=== PATIENT | female | born 1975 | race Caucasian/White ===

== ENCOUNTER 2018-03-07 18:08 | Emergency (ER) | payer OTHER ==
[2018-03-07] MEDS ORDERED: Oxymetazoline HCl 0.05% ( 15 ML ) ONE (19:25)
[2018-03-07] MEDS ORDERED: Ketorolac Tromethamine 30 MG/ML VIAL ONE (19:25)
[2018-03-07] MEDS ORDERED: Prochlorperazine 10 MG/2 ML VIAL ONE (19:25)
[2018-03-07] MEDS ORDERED: diphenhydrAMINE 50 MG/ML VIAL ONE (19:25)
[2018-03-07] MEDS ORDERED: Magnesium Sulfate 2 GM/NS 0.9% 50 ML BAG ONE (20:39)
[2018-03-07] MEDS ORDERED: methylPREDNISolone Sod Succ/PF 125 MG/2 ML VIAL ONE (20:39)
[2018-03-07] MEDS ORDERED: Acetaminophen 500 MG TAB ONE (20:39)
== END 2018-03-07 21:26 | disposition home or self-care (01) ==
LOC: SCSER 18:08
DX: R51 Headache (principal)
CPT/HCPCS: 96365; 96367; 96375; J0780; J1200; J1885; J2930; J3475